=== PATIENT | female | born 1945 | race Two or more races ===

== ENCOUNTER 2021-01-25 07:45 | Inpatient (IN) | payer OTHER ==
[~2021-01-25] VITALS: Ht 167.6 cm; Wt 81.6 kg
[2021-01-25] MEDS ORDERED: SYNTHROID88 MCG PO (11:23)
[2021-01-25] MEDS ORDERED: [UNRECOGNIZED DRUG - OTHER] (11:24)
[2021-01-25] MEDS ORDERED: COZAAR50 MG PO (11:24)
[2021-01-25] MEDS ORDERED: SIMVASTATIN10 MG PO (11:25)
[2021-01-25] MEDS ORDERED: B12 ACTIVE1000 MCG PO (11:25)
[2021-01-25] MEDS ORDERED: D3 + K2 DOTS 11 EACH PO (11:25)
[2021-01-25] MEDS ORDERED: FOLIC ACID20 MG PO (11:26)
[2021-01-30] MEDS ORDERED: FERROUS SULFAT325 MG (07:54)
[2021-01-31] MEDS ORDERED: VITAMIN D3250 MCG (08:13)
[2021-01-31] MEDS ORDERED: VITAMIN B122500 MCG (08:13)
[2021-01-31] MEDS ORDERED: FOLIC ACID1 MG (08:13)
[2021-01-31] MEDS ORDERED: GABAPENTIN100 M2 (08:13)
[2021-01-31] MEDS ORDERED: GLIPIZIDE ER10 MG (08:14)
[2021-01-31] MEDS ORDERED: SERTRALINE HCL25 MG (08:14)
[2021-01-31] MEDS ORDERED: LATANOPROST2.5 ML (08:14)
[2021-01-31] MEDS ORDERED: CLOTRIMAZOLE-BE15 G1 (08:14)
[2021-01-31] MEDS ORDERED: ROSUVASTATIN CA20 MG (08:14)
[2021-02-02] MEDS ORDERED: OXYC1TAB9 PO (12:53)
[2021-02-02] MEDS ORDERED: CIPRO500 MG PO (12:53)
== END 2021-02-02 13:00 | disposition home health service (06) | DRG 460 ==
LOC: O/R 01-30 06:08 → SURH 01-30 07:45
PROVIDERS: ADMIT Neurological Surgery; ATTEND Neurological Surgery
PROC: 0SG00J1 Fusion of Lumbar Vertebral Joint with Synthetic Substitute, Posterior Approach, Posterior Column, Open Approach (ICD-10-PCS; principal; 2021-01-30 12:45)
DX: M43.16 Spondylolisthesis, lumbar region (principal)

== ENCOUNTER 2021-05-01 09:00 | Outpatient (CLI) | payer OTHER ==
[~2021-05-01 09:00] MED LIST: B12 ACTIVE1000 MCG PO; CIPRO500 MG PO; CLOTRIMAZOLE-BE15 G1; COZAAR50 MG PO; D3 + K2 DOTS 11 EACH PO; FERROUS SULFAT325 MG; FOLIC ACID1 MG; FOLIC ACID20 MG PO; GABAPENTIN100 M2; GLIPIZIDE ER10 MG; LATANOPROST2.5 ML; OXYC1TAB9 PO; ROSUVASTATIN CA20 MG; SERTRALINE HCL25 MG; SIMVASTATIN10 MG PO; SYNTHROID88 MCG PO; VITAMIN B122500 MCG; VITAMIN D3250 MCG; [UNRECOGNIZED DRUG - OTHER]
== END 2021-05-01 09:15 | disposition home or self-care (01) ==
LOC: PPH VACUNA 09:00
PROVIDERS: ATTEND Emergency Medicine Pediatric Emergency Medicine
DX: Z23 Encounter for immunization (principal)